=== PATIENT | female | born 1975 | race Caucasian/White ===

== ENCOUNTER 2020-10-13 14:03 | Emergency (ER) | payer MEDICAID, SELFPAY ==
[~2020-10-13] VITALS: Ht 165.1 cm; Wt 72.6 kg
[2020-10-13 14:05] VITALS: Ht 165.1 cm; Wt 72.6 kg
[2020-10-13 15:21] VITALS: BP 117/82
== END 2020-10-13 15:21 | disposition home or self-care (01) ==
LOC: ED 14:03
DX: U07.1 COVID-19 (principal); B34.9 Viral infection, unspecified
CPT/HCPCS: U0003

== ENCOUNTER 2020-10-19 15:16 | Inpatient (IN) | payer MEDICAID, SELFPAY ==
[~2020-10-19] VITALS: Ht 165.1 cm; Wt 68.5 kg
[2020-10-19 15:58] VITALS: Ht 165.1 cm; Wt 68.5 kg
[2020-10-19 17:34] LABS: CALCIUM 8.5 mg/dL (8.5-10.1); CARBON DIOXIDE 30.7 mmol/L (21-32); CHLORIDE SERUM 102 mmol/L (98-107); CREATININE SERUM 0.9 mg/dL (0.6-1.0); GFR1 > 60 mL/min; GLUCOSE SERUM 118 mg/dL (74-106); POTASSIUM SERUM 4.1 mmol/L (3.5-5.1); SODIUM SERUM 140 mmol/L (136-145)
[2020-10-19 17:35] LABS: BASOPHIL % 0.2 % (0.2-1.3); PLATELET COUNT 327 x10^3mcL (179-408); RED CELL DISTRIBUTION WIDTH 12.7 % (12.3-17.7)
[2020-10-19 17:38] LABS: ALBUMIN 3.4 g/dL (3.4-5.0); ALKALINE PHOSPHATASE 87 U/L (46-116); ALT/SGPT 21 U/L (14-59); AST/SGOT 17 U/L (15-37); BILIRUBIN TOTAL 0.4 mg/dL (0.20-1.00); C REACTIVE PROTEIN 1.8 mg/dL (<=0.9); LACTIC DEHYDROGENASE (LDH) 272 U/L (100-190); TOTAL PROTEIN, SERUM 7.9 g/dL (6.4-8.2)
[2020-10-19 21:32] LABS: UA SPECIFIC GRAVITY 1.025 (1.005-1.035); microscopic required? YES; urine erythrocyte NEGATIVE (NEGATIVE)
[2020-10-20 00:45] LABS: FREE T4 1.9 ng/dL (0.76-1.46); FREE THYROXINE INDEX 3.7 ug/dL (1.4-4.5); T4(THYROXINE) 11.2 ug/dL (4.7-13.3)
[2020-10-20 00:46] LABS: T3 TOTAL 1.13 ng/mL
[2020-10-20 09:56] LABS: BASOPHIL % 0.3 % (0.2-1.3); PLATELET COUNT 330 x10^3mcL (179-408); RED CELL DISTRIBUTION WIDTH 12.8 % (12.3-17.7)
[2020-10-20 12:31] VITALS: BP 116/76
[2020-10-20 18:21] LABS: CALCIUM 8.8 mg/dL (8.5-10.1); CARBON DIOXIDE 26.9 mmol/L (21-32); CHLORIDE SERUM 103 mmol/L (98-107); CREATININE SERUM 0.7 mg/dL (0.6-1.0); GFR1 > 60 mL/min; GLUCOSE SERUM 137 mg/dL (74-106); MAGNESIUM 2.2 mg/dL (1.8-2.4); PHOSPHOROUS 2.5 mg/dL (2.5-4.9); POTASSIUM SERUM 4.6 mmol/L (3.5-5.1); SODIUM SERUM 138 mmol/L (136-145)
[2020-10-21 02:33] VITALS: BP 110/79
[2020-10-21 05:45] VITALS: BP 107/69
[2020-10-21 08:55] VITALS: BP 102/65
[2020-10-21 16:53] VITALS: BP 95/55
[2020-10-21 21:11] VITALS: BP 94/59
[2020-10-22 05:50] VITALS: BP 113/66
[2020-10-22 08:30] LABS: CALCIUM 8.2 mg/dL (8.5-10.1); CARBON DIOXIDE 27.7 mmol/L (21-32); CHLORIDE SERUM 104 mmol/L (98-107); CREATININE SERUM 0.7 mg/dL (0.6-1.0); GFR1 > 60 mL/min; GLUCOSE SERUM 75 mg/dL (74-106); SODIUM SERUM 139 mmol/L (136-145)
[2020-10-22 08:32] LABS: BASOPHIL % 0.2 % (0.2-1.3); PLATELET COUNT 392 x10^3mcL (179-408); RED CELL DISTRIBUTION WIDTH 12.7 % (12.3-17.7)
[2020-10-22 09:17] VITALS: BP 95/60
[2020-10-22 12:22] VITALS: BP 103/62
[2020-10-22 17:12] VITALS: BP 98/61
[2020-10-22 22:16] VITALS: BP 106/62
[2020-10-23 08:39] LABS: BASOPHIL % 0.2 % (0.2-1.3); RED CELL DISTRIBUTION WIDTH 12.7 % (12.3-17.7)
[2020-10-23 08:44] LABS: CALCIUM 8.5 mg/dL (8.5-10.1); CARBON DIOXIDE 27.4 mmol/L (21-32); CHLORIDE SERUM 105 mmol/L (98-107); CREATININE SERUM 0.5 mg/dL (0.6-1.0); GFR1 > 60 mL/min; GLUCOSE SERUM 83 mg/dL (74-106); POTASSIUM SERUM 3.9 mmol/L (3.5-5.1); SODIUM SERUM 142 mmol/L (136-145)
[2020-10-23 08:57] LABS: PLATELET COUNT 412 x10^3mcL (179-408)
[2020-10-23 09:17] VITALS: BP 95/59
[2020-10-23 12:07] VITALS: BP 98/59
[2020-10-23] MEDS ORDERED: VENTOLIN H0.09 MG/A1 INH (12:16)
[2020-10-23] MEDS ORDERED: MUCINEX600 MG PO (12:17)
[2020-10-23] MEDS ORDERED: DECADRON6 MG PO (12:29)
[2020-10-23] MEDS ORDERED: MEDDP PO (12:29)
[2020-10-23] MEDS ORDERED: ELIQUIS5 MG PO (12:29)
[2020-10-23 12:36] VITALS: BP 98/59
== END 2020-10-23 18:20 | disposition home or self-care (01) | DRG 137 ==
LOC: ED 15:16 → DU 21:55
PROVIDERS: Emergency Medicine; ADMIT Family Medicine; ATTEND Family Medicine
DX: U07.1 COVID-19 (principal); J96.01 Acute respiratory failure with hypoxia; J12.89 Other viral pneumonia; N39.0 Urinary tract infection, site not specified
CPT/HCPCS: 36600; 82962; 83880; 84439; 85378; 87804; G0378; J0456; J0696; J1100; J1644; J3535; J7050; J7060; U0003